=== PATIENT | female | born 1980 ===

== ENCOUNTER 2021-05-27 12:32 | Emergency (ER) | payer MEDICAID ==
[~2021-05-27] VITALS: Ht 162.6 cm; Wt 81.3 kg
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
[2021-05-27] MEDS ORDERED: ALBUTEROL SULFATE 2.5 MG/3 ML NEBU. ONE (13:54)
[2021-05-27 14:45] VITALS: BP 141/63
== END 2021-05-27 15:17 | disposition home or self-care (01) ==
LOC: ER 12:32
DX: R09.3 Abnormal sputum (principal); R09.81 Nasal congestion; R03.0 Elevated blood-pressure reading, without diagnosis of hypertension; Z93.0 Tracheostomy status
CPT/HCPCS: 99281